=== PATIENT | female | born 1980 | race Caucasian/White ===

== ENCOUNTER → 2020-05-05 | Day surgery (SDC) | payer OTHER ==
[~2020-05-05] VITALS: Ht 175.3 cm; Wt 90.7 kg
[~2020-05-05] MED LIST: ACETAMINOPHEN500 M1 PO; COLACE100 MG PO; MOTRIN600 MG PO; OXY-IR 5MG5 MG PO; REGLAN5 MG PO; ZOFRAN4 M1 PO; mirena
[2020-05-05 12:29] LABS: HCG (URINE) SCREEN NEGATIVE (NEGATIVE)
[2020-05-05 13:27] LABS: ALBUMIN 3.9 g/dL (3.4-5.0); BILIRUBIN - TOTAL 1.5 mg/dL (0.2-1.0); BUN/CREAT RATIO (CALC) 13.9 RATIO; CREATININE 0.79 mg/dL (0.51-0.95); GLOBULIN (CALCULATION) 3.6 g/dL; POTASSIUM 4.1 mmol/L (3.5-5.1); TOTAL PROTEIN 7.5 g/dL (6.4-8.2)
== END | disposition home or self-care (01) ==
LOC: FAS 11:53
PROVIDERS: Student in an Organized Health Care Education/Training Program
DX: K81.1 Chronic cholecystitis (principal); K21.9 Gastro-esophageal reflux disease without esophagitis; K27.9 Peptic ulcer, site unspecified, unspecified as acute or chronic, without hemorrhage or perforation; M54.16 Radiculopathy, lumbar region; E05.90 Thyrotoxicosis, unspecified without thyrotoxic crisis or storm; Z88.6 Allergy status to analgesic agent; Z98.890 Other specified postprocedural states; Z80.0 Family history of malignant neoplasm of digestive organs; Z97.5 Presence of (intrauterine) contraceptive device; Z90.89 Acquired absence of other organs; Z20.822 Contact with and (suspected) exposure to COVID-19
CPT/HCPCS: 36415; 80053; 82150; 83690; 84703; J1170; J1644; J1885; J2250; J2405; J2550; J2704; J2710; J3010; J7120